=== PATIENT | female | born 1940 | race Caucasian/White ===

== ENCOUNTER → 2018-07-30 09:40 | Outpatient (CLI) | payer MEDICARE, OTHER, SELFPAY ==
--- NOTE | 2018-07-30 09:55 | RAD_ITS ---
PROCEDURE: Fluoroscopic guided Hip Injection DATE: July 30, 2018 INDICATION: Female, 77 years old. Right hip pain. PHYSICIAN: Kingsley Landrum M.D. MEDICATIONS: 6 mg of betamethasone and 3 cc 1% lidocaine. 2% Lidocaine administered subcutaneously for local anesthesia. ACCESS SITE: Right hip. NEEDLE: 22-gauge spinal needle. FLUOROSCOPY TIME (if supplied): (0:48) minutes/seconds FINDINGS: The risks, benefits, and alternatives to the procedure were explained to the patient. The specific risks of bleeding, infection, and neurovascular injury were detailed and accepted. Witnessed informed consent was obtained. A 22-gauge spinal needle was positioned under mammographic fluoroscopic localization. Approximately 2 cc of Isovue-300 instilled for localization purposes. Medication was then injected. The patient tolerated the procedure well without any immediate complications. The patient was placed supine with head elevated and returned to the floor in stable condition. RAD/Inj/Asp Kelvin Jt Should/Hip/Knee IMPRESSION: 1. Successful fluoroscopic guided hip injection. Electronically Signed: Kingsley Landrum MD at 15:26 EST , Service support ,
== END ==
PROVIDERS: Family Provider Family Medicine; PCP Family Medicine; Referring Provider Specialist; Visit Provider Specialist
DX: M16.11 Unilateral primary osteoarthritis, right hip (principal)
CPT/HCPCS: 20610; 77002; Q9965; J0702

== ENCOUNTER 2018-09-05 11:30 | Outpatient (RCR) | payer MEDICARE, OTHER, SELFPAY | END 2018-09-15 23:59 | LOC: NS 11:30 | PROVIDERS: Family Provider Family Medicine; PCP Family Medicine; Visit Provider Specialist | DX: E66.01 Morbid (severe) obesity due to excess calories (principal); Z68.42 Body mass index [BMI] 45.0-49.9, adult; Z71.3 Dietary counseling and surveillance | CPT/HCPCS: 97802; 97803 ==

== ENCOUNTER 2018-10-08 11:30 | Outpatient (RCR) | payer SELFPAY | END 2018-10-15 23:59 | LOC: NS 11:30 | PROVIDERS: Family Provider Family Medicine; PCP Family Medicine; Visit Provider Specialist | DX: E66.01 Morbid (severe) obesity due to excess calories (principal); Z68.42 Body mass index [BMI] 45.0-49.9, adult; Z71.3 Dietary counseling and surveillance | CPT/HCPCS: 97803 ==

== ENCOUNTER 2018-10-30 11:08 | Outpatient (RCR) | payer SELFPAY | END 2018-11-15 23:59 | LOC: NS 11:08 | PROVIDERS: Family Provider Family Medicine; PCP Family Medicine; Visit Provider Specialist | DX: E66.01 Morbid (severe) obesity due to excess calories (principal); Z68.42 Body mass index [BMI] 45.0-49.9, adult; Z71.3 Dietary counseling and surveillance | CPT/HCPCS: 97803 ==

== ENCOUNTER 2018-12-03 12:00 | Outpatient (RCR) | payer SELFPAY | END 2018-12-03 23:59 | disposition home or self-care (01) | LOC: NS 12:00 | PROVIDERS: Visit Provider Specialist | DX: E66.01 Morbid (severe) obesity due to excess calories (principal); Z68.42 Body mass index [BMI] 45.0-49.9, adult; Z71.3 Dietary counseling and surveillance | CPT/HCPCS: 97803 ==

== ENCOUNTER 2019-03-12 10:01 | Inpatient (IN) | payer MEDICARE, OTHER, SELFPAY ==
[2019-02-27 15:27] VITALS: BP 141/62; PULSE 69; RESP 17; TEMP 36.6; O2SAT 96; BMI 45.8
[2019-02-27 18:03] LABS: Anion Gap 8 (5-15); BUN 16 mg/dL (7-18); BUN/Creat Ratio 26.6 RATIO (10-20); Calcium,Total 9.7 mg/dL (8.5-10.1); Chloride 106 mmol/L (98-107); EST Glomerular Filtration Rate 103 mL/min (>60); Est Glom Filt Rate - Afr Amer 124 mL/min (>60); Estimated Creatinine Clearance 35.55 ml/min; Glucose 94 mg/dL (74-106); Potassium 3.8 mmol/L (3.5-5.1); Sodium Level 144 mmol/L (136-145)
--- NOTE | 2019-02-28 07:50 | HP.PCM_ITS ---
History and Physical Patient Name: Alona Woodson : 1940 From: GABI WILCOX PA-C DATE OF SURGERY: 03/12/2019 SCHEDULED PROCEDURE: right total hip arthroplasty HISTORY OF PRESENT ILLNESS: Preoperative history and physical exam was performed on February 27, 2019. This is a 78 -year-old female who is been having ongoing pain in her right hip for the past 8 months. Patient's states the pain can reach a size and 8/10 with activity. Patient's pain is been intermittent, aching, and sore. Pain is increased with walking and going up and down stairs. Patient complains of pain located in the right groin. She also has right buttock pain that radiates into the back of the knee. She denies any numbness or tingling. Patient has tried conservative measures consisting of rest and elevation. Patient has tried physical therapy with minimal relief. Patient has been working on weight loss and has done well. patient has also tried oral medications including Aleve with minimal relief. Patient has lost approximately 18 pounds. She denies previous surgery on the right hip. After failing conservative measures and discussing treatment options with Dr. Uriel Sanches, the patient would like to proceed with a right total hip arthroplasty. Patient currently denies any chest pain, shortness of breath, fevers chills, or recent infections. She has obtain surgical clearance from her primary care physician Dr. Donny Sanches. REVIEW OF SYSTEMS: ROS: Const: Reports weight change, but denies change in appetite and fever. CV: Reports heart murmur, but denies chest pain and irregular heartbeat. Resp: Denies cough, pneumonia, shortness of breath, tuberculosis and wheezing. GI: Denies constipation, diarrhea, heartburn, nausea, rectal itching, bloody stools and vomiting. : Denies incontinence. Musculo: Reports trouble walking, but denies leg swelling, pain and weakness. Skin: Denies Raynaud's, history of shingles and tattoo. Neuro: Denies ambulatory dysfunction, dizziness, numbness/tingling and tremor. Psych: Denies anxiety, insomnia and stress. Geronimo/Lymph: Denies anemia, bleeding/bruising tendency and past transfusion. Reviewed, no changes. PAST MEDICAL HISTORY: Advance Care Plan: Other Directive, POA Effective Date: 07/22/2018 Other Directive, LIVING WILL Effective Date: 07/22/2018 PMH: Medical Problems: Gout, Hard of Hearing, High Blood Pressure, Hypercholesterolemia, Psoriasis, Sleep Apnea Accidents: None Surgical Hx: Appendectomy, Gallbladder, Hysterectomy, Tonsillectomy, Knee Replacement Lt, Knee Replacement Rt, Homero Cataracts Anesthesia Complications: None Assistive Devices: Hearing Aid - AMPLIFIER Reviewed and updated. SOCIAL HISTORY: SH: Marital: .Occupation: Retired.Work Status: Retired.Hand Dominance: Right- handed. Personal Habits: Cigarette Use: Never Smoked Cigarettes.Smokeless Tobacco: Never Used Smokeless Tobacco.E-Cigarette Use: Never used.Alcohol: Denies use.Drug Use: Denies Use.Enjoy Exercising: Exercises 1-3 x/month. Reviewed, no changes. VITALS: Ht: 59.5 Wt: 246lb Wt k.586 BMI: 48.8 BP: 126/84 Pulse: 63 Resp: 16 T: 97.1 T: 36.2C ALLERGIES: Cipro Flagyl MEDICATIONS: Myrbetriq 25 mg 1 tab PO daily, Atorvastatin Calcium 20 mg 1 tab PO daily, Lisinopril 20 mg 1 tab PO daily, Allopurinol 100 mg 1 tab PO daily, Verapamil 180mg 1 tab PO bid, Cholestyramine Light 4 GM/Dose tad, Vitamin D3 12290 Unit 1 tab PO once weekly, [place] 3 1000 mg 1 cap PO qid, Aleve 220 mg prn, Aspir-Low 81 mg 1 by mouth once daily PRE-OP EXAM: General appearance:NORMAL Other: Eyes: Conjunctivae and lids: NORMAL Pupils: ERR Ears, Nose, Mouth, and Throat: NORMAL Other: Inspection of lips, teeth and gums: NORMAL Other: Neck: Examination of neck: no masses noted. Respiratory: Assessment of respiratory effort: NORMAL Other: Auscultation of lungs: clear to auscultation no wheezes, rhonchi or rales. Cardiovascular: Auscultation of heart: regular rate and rhythm, positive systolic murmur Gastrointestinal: Exam of abdomen: soft, nontender, nondistended bowel sounds present. PHYSICAL EXAMINATION: Patient does walk with an antalgic gait. Patient's hip is cool to touch without erythema. Right hip range of motion: Flexion 80, internal rotation neutral, external rotation 25. Pain with range of motion. Sensation intact to light touch. Neurovascularly intact. IMAGING STUDIES: X-rays of the right hip reveal joint space narrowing with subchondral sclerosis, osteophyte formation consistent with severe osteoarthritis. Patient also has moderate severe arthrosis of the left hip with joint space narrowing, subchondral sclerosis, and osteophyte formation. IMPRESSION: 1. Severe right hip osteoarthritis 2. Left hip osteoarthritis 3. Hypertension 4. Sleep apnea: Currently uses CPAP 5. Psoriasis 6. Hypercholesterolemia 7. History of gout PLAN: Dr. Uriel Sanches did discuss and review with the patient all treatment options including surgical versus nonsurgical options. Patient does wish to proceed with the above-stated procedure. Potential risks, benefits, and complications of the procedure were discussed in detail including but not limited to , infection, nerve and blood vessel damage, persistent pain, numbness, tingling, paresthesias, blood clot, pulmonary embolism, and requirement for possible further surgery. The patient expressed full understanding and has no further questions for the doctor. Patient does agree to proceed with the above-stated procedure and has signed the surgery consent form. This dictation was created using voice recognition software. Phonetic and/or grammatical errors may exist.. ___ I have re-examined the patient. There are no clinical changes since date of exam. ___ See progress notes for changes. ___ Dictated on admission Date: Time: Signature:
[2019-03-12] VITALS (9 sets, daily range): BP systolic 130–154; BP diastolic 44–94; PULSE 52–65; RESP 14–16; TEMP 35.9–36.7; O2SAT 87–100; BMI 46.5; BMI 43.4
[2019-03-12 10:26] LABS: Bedside Glucose 63 mg/dL (70-110)
[2019-03-12] MEDS: Lactated Ringers 1,000 ML 125 ML IV ×2 (10:36→15:18)
[2019-03-12] MEDS: Gabapentin 600 MG Tablet PO (10:37)
[2019-03-12] MEDS: Celecoxib 200 MG Capsule 400 MG PO (10:37)
[2019-03-12] MEDS: Acetaminophen 500 MG Tablet 1000 MG PO ×2 (10:38→22:16)
[2019-03-12] MEDS: Cefazolin 2 GM in 0.9% Normal Saline 100 ML IV (12:00)
--- NOTE | 2019-03-12 12:00 | RAD_ITS ---
STUDY: X-RAY - RIGHT HIP REASON FOR EXAM: Female, 78 years old. Total hip replacement TECHNIQUE: 2 intraoperative views of the hip. COMPARISON: None. FINDINGS: Status post right total hip replacement. Hardware components are well aligned on these limited views. Bony details are limited. RAD/Hip 1 view with Pelvis IMPRESSION: Status post total replacement of the right hip. Electronically Signed: Gage Acevedo DO at 19:50 EDT Tel [phone], Service support ,
[2019-03-12] MEDS: dexAMETHasone 10 MG/ML Vial IV (12:33)
--- NOTE | 2019-03-12 14:18 | OP.PCM_ITS ---
Report of Operation Date of Procedure: 03/12/19 Pre-Operative Diagnosis: Right hip primary Osteoarthritis Post-Operative Diagnosis: Right hip primary Osteoarthritis Surgery/Procedure Performed:: Right minimally invasive direct anterior total hip replacement Description of Surgical Findings:: Stable hip. Due to patient's extreme varus anatomy we did make her slightly longer on the right in order to obtain appropriate stability. joint special operations: Aly Hdz Type of Anesthesia:: Spinal Anesthesiologist: Catalino Lange Special Medications: 2 g Ancef, 1 g TXA at incision, 1 g TXA closure, 10 mg Decadron, joint cocktail (5 mg Duramorph, 30 mL of 0.5% Ropivicaine, 1000 units of epinephrine, 30 mg of Toradol) Specimen's removed: Bony cuts Estimated Blood Loss (mL): 300 Fluids Replaced: 1300 ml crystalloid Description of Procedure: Components used: 1. Accolade 2 Arvind femoral stem size 1 127? 2. Riegelwood trident 2 acetabular shell size 48 mm 3. Riegelwood X3 polyethylene D 4. Riegelwood Biolox delta 36mm, +2.5mm femoral head Brief history operative indications: 78 yo f who failed conservative measures for their hip osteoarthritis. X-rays were consistent with osteoarthritis including joint space narrowing, osteophyte formation and subchondral cysts. Total hip replacement was discussed with the patient with risks and benefits including but not limited to blood loss, DVTs, PEs, neurovascular damage, dislocation, general risks of anesthesia including loss of life. Patient demonstrated an understanding medical clearance is obtained the patient was consented for surgery. Procedure: On the date of procedure the patient's r hip was marked in the preoperative area. Patient was then taken back to the operating room where anesthesia assumed control of the C-spine and airway and administered anesthetic. Patient was transferred to the operating table and placed in the supine position. The hips were placed at the break of the bed and a sacral bump was placed. The r lower extremity was then prepped out in a sterile fashion using chlorhexidine while the surgeon scrubbed. The PA was vital in the positioning of the patient. Upon reentering the room the r lower extremity was draped in the standard orthopedic fashion and the incision was marked. A timeout was called and everyone agreed upon the side, the site, the procedure be performed, antibody given, and patient's identity. At this time incision was made through skin, subcutaneous tissue, and fat down to fascia. The fascia was then incised and the TFL was retracted laterally. A retractor was placed on the lateral border of the femoral neck. Attention was directed to the inferior portion of the approach and all crossing vessels were identified and appropriately coagulated. A retractor was then placed on the medial portion of the femoral neck. The anterior capsule was then cleared of all soft tissue and then H shaped capsulotomy was made. The retractors were then placed inside the capsule. The femoral neck was identified and a cleanup cut was made. At this time a power corkscrew was used to remove the femoral head. Attention was then turned toward the acetabulum where the soft tissues were appropriately retracted and the acetabulum was sequentially reamed to 48 mm. A 48 mm cup was then selected and impacted into place. Acetabular liner was impacted into place and locking mechanism was verified. The position of the acetabular cup was then verified under live fluoroscopy. Attention was then turned to the femur. Soft tissue releases on the medial and lateral femoral neck were appropriately done, the leg was externally rotated and lateralized. A Lake retractor was placed medially and proximally to the greater trochanter this allowed appropriate visualization and exposure of the femoral canal. Rongeour was then used to remove excess lateral bone. A canal finder and entry broach were used to open the proximal canal. Once we verified we were down the femoral canal we subsequently broached up to a size 2 femur. The appropriate neck was placed in the previously selected head was trialed with a -5 mm neck. Traction was pulled and the hip was reduced with internal rotation. Once it was appropriately reduced and stability was checked. There was minimal shuck, appropriate stability with hyperextension and external rotation as well as with 90? flexion and internal rotation. However at this point patient's hip was excessively long. Fluoroscopy was then also used to verify the position of the components and leg lengths using the contralateral side for comparison. At this time there appeared to be significant leg length discrepancy based on the implants. Patient's anatomic anatomy was again reexamined showing significant varus. Live x-rays used to verify the size of the femoral implant. Based on radiographic findings we felt we would need to significantly seat the implant requiring a downsize. Hip was dislocated proximal femur was again exposed. We further broached with a 1 broach using the calcar reamer to clean up the neck. Once this was completed we again trialed. We trialed with a -2.5 which gave us a reasonable leg length however did not give us adequate stability of the hip. Using live x-ray as well as anatomic markers it was felt that the acetabular anteversion was appropriate. Femoral anteversion was reviewed and felt to be appropriate as well. Based on this and the fact the patient had contralateral severe osteoarthritis on her preoperative pelvic film we elected to slightly lengthen the extremity in order to obtain stability. We trialed up to a +2.5, 36 mm femoral head which did give us adequate stability with a slight leg length discrepancy on the operative side. The trial components were then dislocated the proximal femur was again exposed and the components were removed from the wound. The final components were verified and opened. The wound was copiously irrigated out with normal saline. The acetabulum was checked for any residual debris. The final components were placed and impacted. Traction and internal rotation were again used to reduce the hip. After adequate reduction the hip remained stable with appropriate leg lengths. The final components were once again checked with live fluoroscopy and were found to be satisfactory. The wound was then copiously irrigated with normal saline once more, and hemostasis was obtained. Closure was then done using #1 Vicryl runner to close the fascia. A 2-0 vicryl interuppted sutures were used to close the subcutaneous skin. A 3-0 Monocryl and Steri-Strips were used for final skin closure. A Silverlon dressing was placed. Patient was awakened by anesthesia and transferred to the [facility]. Patient was then transferred to the PACU for recovery. Postoperative plan: Patient will get 24 hours postop antibiotics. Patient will get in-house physical therapy and will be weight-bear as tolerated. Patient will follow up in office in 2 weeks for a wound check and x-rays. During the course of the procedure the physician assistant casino shift manager played a vital role. His intimate knowledge of my steps in the procedure aided in safe and expedient completion of the procedure. The PA played a vital rolls in positioning particularly in obtaining the appropriate positioning of the sacral bump. The PA was also vital in the retraction of soft tissues during the exposure and especially the femoral work as this is a vital part of the procedure to prevent complications and fractures. The PA was also vital and protecting soft tissues during times of bony cuts and reaming. He also played a vital role in closure with my direct supervision. The PA was also important during reduction and dislocation of the joint and trials intraoperatively. Grafts/Implants Used: Riegelwood - Complications No intraoperative complications - Admit VTE Documentation VTE Present on Admission: No VTE Mechan Device Prophylaxis: SCD's, Thigh High AYDEN Hunt VTE Pharm Prophylaxis ordered?: Yes
--- NOTE | 2019-03-12 15:34 | RAD_ITS ---
STUDY: X-RAY - PELVIS AND RIGHT HIP REASON FOR EXAM: Female, 78 years old. Post op TECHNIQUE: 2 views of the pelvis and hip. COMPARISON: None. FINDINGS: The patient is status post right hip arthroplasty. The hardware is intact and alignment is satisfactory. There is no acute fracture or dislocation. RAD/Hip Min 2 Views (Portable) IMPRESSION: Status post right hip arthroplasty with intact hardware in satisfactory alignment. Electronically Signed: Uriel Najera, at 16:14 EDT Tel , Service support ,
[2019-03-12] MEDS: Aspirin 81 MG TAB.CHEW PO (18:11)
[2019-03-12] MEDS: Famotidine 20 MG Tablet PO (18:11)
[2019-03-12] MEDS: Cefazolin 1 GM/50 ML BAG IV (20:24)
[2019-03-12] MEDS: Atorvastatin Calcium 20 MG Tablet PO (22:16)
[2019-03-12] MEDS: Senna/Docusate Sodium 1 Tablet 2 TABLET PO (22:16)
[2019-03-12] MEDS: Verapamil SR 180 MG CAPSULE PO (22:17)
[2019-03-13 02:28] VITALS: BP 134/52; PULSE 61; RESP 18; TEMP 36.4; O2SAT 97
[2019-03-13] MEDS: Cefazolin 1 GM/50 ML BAG IV (03:52)
[2019-03-13] MEDS: Acetaminophen 500 MG Tablet 1000 MG PO ×2 (05:21→13:54)
[2019-03-13 06:00] LABS: Mean Corp Hgb Conc 31.4 g/dL (32-36); Mean Corpuscular Hgb 29.1 pg (27.0-32.0); Mean Corpuscular Volume 92.6 fL (81-99); Mean Platelet Vol. 9.8 fl (6.2-12.0); Platelet Count 242 K/mm3 (150-450); RBC Distribution Width CV 13.8 % (11.6-14.6); RBC Distribution Width SD 47.1 fl (35.1-43.9); Red Blood Count 3.78 M/mm3 (4.2-5.4); White Blood Count 21.5 K/mm3 (4.4-11.0)
[2019-03-13 06:23] LABS: Anion Gap 9 (5-15); BUN 24 mg/dL (7-18); BUN/Creat Ratio 33.5 RATIO (10-20); Calcium,Total 8.5 mg/dL (8.5-10.1); Chloride 105 mmol/L (98-107); Creatinine, Serum 0.72 mg/dL (0.55-1.02); EST Glomerular Filtration Rate 84 mL/min (>60); Est Glom Filt Rate - Afr Amer 101 mL/min (>60); Estimated Creatinine Clearance 35.55 ml/min; Glucose 125 mg/dL (74-106); Potassium 4.8 mmol/L (3.5-5.1); Sodium Level 139 mmol/L (136-145)
[2019-03-13 08:28] VITALS: BP 133/94; PULSE 69; RESP 18; TEMP 36.4; O2SAT 95
[2019-03-13] MEDS: Ensure Surgery 237 ML LIQUID PO (08:31)
[2019-03-13] MEDS: Mirabegron 25 MG TAB.ER.24H PO (08:31)
[2019-03-13] MEDS: Aspirin 81 MG TAB.CHEW PO (08:32)
[2019-03-13] MEDS: Allopurinol 100 MG Tablet PO (08:32)
[2019-03-13] MEDS: Meloxicam 7.5 MG Tablet PO (08:32)
[2019-03-13] MEDS: Famotidine 20 MG Tablet PO (08:32)
[2019-03-13] MEDS: Verapamil SR 180 MG CAPSULE PO (08:33)
--- NOTE | 2019-03-13 08:55 | PCM.PN.ORT ---
Subjective: The patient was sitting in bed side chair upon examination. Patient denies any chest pain, shortness of breath, dizziness, lightheadedness, nausea or vomiting, or calf pain. Pain is controlled on medications. No adverse overnight events. Overall patient is doing well. She has tightness in her right thigh but the pain is well controlled. She has tolerated physical therapy. Patient does wish to go home today. Objective: Vital signs stable and afebrile. Patient is able to plantarflex and dorsiflex actively. Sensation is intact to light touch to saphenous, sural, superficial and deep peroneal, and tibial distribution. Dressing is minimal drainage over the middle one third and remaining dressing clean dry and intact. Negative Homans bilaterally, negative signs and symptoms of DVT. - Physical Exam General: Alert, Oriented x3, Cooperative, No apparent distress Vital Signs Temp Pulse Resp BP Pulse Ox 97.6 F L 69 18 133/94 H 95 03/13/19 08:28 03/13/19 08:28 03/13/19 08:28 03/13/19 08:28 03/13/19 08:28 Oxygen Flow Rate (L/min) 2 Oxygen Delivery Method Room Air Weight: 104.326 kg Body Mass Index (BMI) 43.4 Intake and Output for Last 24 Hours 03/11/19 03/12/19 03/13/19 23:59 23:59 23:59 Intake Total 2880.0 / 2880.0 650 / 650 Output Total 300 / 300 250 / 250 Balance 2580.0 / 2580.0 400 / 400 Laboratory Tests Past 24 Hrs 03/13/19 03/13/19 05:34 05:34 WBC 21.5 H RBC 3.78 L Hgb 11.0 L Hct 35.0 L MCV 92.6 MCH 29.1 MCHC 31.4 L RDW Std Deviation 47.1 H RDW Coeff of Kirsty 13.8 Plt Count 242 MPV 9.8 Sodium 139 Potassium 4.8 Chloride 105 Carbon Dioxide 25.0 Anion Gap 9 BUN 24 H Creatinine 0.72 Estim Creat Clear Calc 35.55 Est GFR (MDRD) Af Amer 101 Est GFR (MDRD) Non-Af 84 BUN/Creatinine Ratio 33.5 H Glucose 125 H Calcium 8.5 POC Glucose 03/12/19 10:23 POC Glucose 63 L Medical Necessity - Tobacco Use Smoking Status: Never smoker Assessment/Plan 1. S/P right direct anterior total hip arthroplasty POD #1 2. Continue Pain Medications: Tylenol and OxyIR 3. DVT Prophylaxis: Aspirin 81 mg twice daily for 4 weeks postoperatively 4. PT/OT: Weightbearing as tolerated 5. H & H: 11.0/35.0, asymptomatic 6. Reactive leukocytosis: Currently 21.5, afebrile. Patient did receive Decadron intraoperatively. 7. Encouraged Incentive Spirometry 8. Disposition: Orthopedically stable, plan will be for discharge home today. Prescriptions were discussed with the patient. Patient will follow-up per postop instructions. She does have outpatient physical therapy established.
--- NOTE | 2019-03-13 09:01 | DCINST_ITS ---
Discharge Diet: No Restrictions Discharge Activity: May Not Drive - while taking narcotic pain medications. May shower in (days): 1 - Dressing must be intact to skin, turn dressing away from water Ice area for (Minutes): 20 - Every 1-2 hours while awake Weight Bearing Status: Weight bearing as tolerated Elevate: Operative Extremity Additional Activity Instructions:: Wear elastic stockings for 2 weeks. DO NOT use alcohol with narcotic pain medication. DO NOT make important decisions while taking narcotic medication. If you have problems with taking your medication (rash, itching, nausea, etc.) call the office at once. Call your doctor if your incision/area has: Increased Pain/ Swelling, Increased Redness, Foul Smelling Discharge Call your doctor if you observe: Fever of 101 or Higher Remove Dressing in (days):: 4 - Okay to remove on March 17, 2019 Additional Instructions: Dressing: Okay to remove dressing on March 17, 2019. After dressing has been removed you must use washcloth to place between the skin fold and incision for 4 weeks postoperatively until incision is well-healed Follow postop orthopedic instructions Allergies/Adverse Reactions: Allergies ciprofloxacin [From Cipro] Allergy (Verified 02/27/19 15:14) Unknown metronidazole Allergy (Verified 02/27/19 15:14) Unknown Medications to take at Discharge Allopurinol 100 mg PO DAILY 02/27/19 Atorvastatin Calcium [Lipitor] 20 mg PO QHS 02/27/19 Cholestyramine/Aspartame [Cholestyramine Light Packet] 4 gm PO DAILY 02/27/19 Ergocalciferol [Vitamin D] 50,000 unit PO Q7D 02/27/19 Mirabegron [Myrbetriq] 25 mg PO DAILY 02/27/19 Verapamil [Calan Sr] 180 mg PO BID 02/27/19 Acetaminophen [Tylenol] 1,000 mg PO Q8 14 Days #100 tab 03/13/19 Aspirin [Aspirin, Baby] 81 mg PO BIDCM #60 tab.chew 03/13/19 Famotidine [Pepcid] 20 mg PO DAILY #30 tab 03/13/19 Meloxicam [Mobic] 7.5 mg PO BID #60 tab 03/13/19 Oxycodone [Oxyir] 5 mg PO Q4H PRN PRN 5 Days #30 tab 03/13/19 The following prescriptions were given: Aspirin [Aspirin, Baby] 81 mg PO BIDCM #60 tab.chew Prescription Printed Meloxicam [Mobic] 7.5 mg PO BID #60 tab Prescription Printed Oxycodone [Oxyir] 5 mg PO Q4H PRN PRN 5 Days #30 tab PRN Reason: Pain Score 4-10/10 Prescription Printed Famotidine [Pepcid] 20 mg PO DAILY #30 tab Prescription Printed Acetaminophen [Tylenol] 1,000 mg PO Q8 14 Days #100 tab Prescription Printed Primary Care Physician: Donny Sanches MD [Primary Care Provider] - Test Results: Test results from this visit will be discussed in further detail at your follow- up appointment, if applicable. Please Follow Up With: Physical Therapy [facility] When: 03/17/19 Please Follow Up With: Aly Hdz PA-C When: 03/26/19 @ 11:00 am
--- NOTE | 2019-03-13 10:25 | CASEMGMT ---
RN DALE Face to Face with patient for initial transition planning/care coordination assessment. RN CM introduced self and role at [facility]. Patient sitting in chair, alert and oriented. Patient willing to participate in assessment and is able to answer all questions appropriately. Care providers, pharmacy, and demographics verified. Patient wishes to discharge home, and is with [facility] for outpatient therapy. Patient states she has no further needs or concerns at this time. CM to follow for discharge planning needs that may arise. PCP: Donny Sanches Specialists: damaris Sanches Preferred Pharmacy: [facility]: [facility] [place]: yes Living Will/HPOA: yes Hudson Woodson LNOK: Living Arrangements: Patient lives with in 1 story home with 3 steps and railing to enter the home. Transportation: DME/HHC: Patient states she has raised toilet, cane, and walker at home. Patient has outpatient therapy setup for Saturday 03/17 at [facility]. Disposition Plan: Patient to discharge home with outpatient therapy, family support, and follow-up plans in place. Tiff CONNOR, RN, CM
[2019-03-13] MEDS: Cholestyramine/Sucrose 4 GM/PACKET PO (11:34)
[2019-03-13 13:56] VITALS: BP 136/54; PULSE 75; RESP 18; TEMP 36.4; O2SAT 95
== END 2019-03-13 14:11 | disposition home or self-care (01) | DRG 470 ==
LOC: ACINP 10:02 → MS3 15:15
PROVIDERS: Admitting Provider Specialist; Family Provider Family Medicine; PCP Family Medicine; Referring Provider Specialist; Visit Provider Specialist
PROC: 0SR90JZ Replacement of Right Hip Joint with Synthetic Substitute, Open Approach (ICD-10-PCS; CPT 27284; principal; 2019-03-12 11:35)
DX: M16.0 Bilateral primary osteoarthritis of hip (principal); I10 Essential (primary) hypertension; E78.00 Pure hypercholesterolemia, unspecified; K58.9 Irritable bowel syndrome, unspecified; M10.9 Gout, unspecified; L40.9 Psoriasis, unspecified; K21.9 Gastro-esophageal reflux disease without esophagitis; H91.90 Unspecified hearing loss, unspecified ear; G47.30 Sleep apnea, unspecified; Z96.653 Presence of artificial knee joint, bilateral; Z78.0 Asymptomatic menopausal state; Z79.82 Long term (current) use of aspirin; Z79.899 Other long term (current) drug therapy
CPT/HCPCS: 36415; 73501; 73502; 76000; 80048; 82962; 85027; 87081; 97161; 97166; 97530; 97535; 99251; C1776; J7120; G0463

== ENCOUNTER 2020-04-13 09:03 | Day surgery (SDC) | payer MEDICARE, OTHER, SELFPAY ==
[2019-03-12 16:15] VITALS: BMI 43.4
--- NOTE | 2020-04-08 11:56 | EKG12_ITS ---
Test Reason : PRE OP Blood Pressure : / mmHG Vent. Rate : 065 BPM Atrial Rate : 065 BPM P-R Int : 184 ms QRS Dur : 102 ms QT Int : 438 ms P-R-T Axes : 040 -08 050 degrees QTc Int : 455 ms Sinus rhythm with occasional Premature ventricular complexes Otherwise normal ECG Confirmed by JONH MELVIN, MINA ([id number]), mapping editor SHERRI JUNG ([id number]) on 04/12/2020 1:00:56 PM Referred By: Javy Larry Confirmed By:MINA BORJA MD
[2020-04-08 13:16] LABS: Anion Gap 6 (5-15); BUN 14 mg/dL (7-18); BUN/Creat Ratio 24.1 RATIO (10-20); Calcium,Total 9.1 mg/dL (8.5-10.1); Chloride 103 mmol/L (98-107); Creatinine, Serum 0.58 mg/dL (0.55-1.02); EST Glomerular Filtration Rate 106 mL/min (>60); Est Glom Filt Rate - Afr Amer 129 mL/min (>60); Glucose 88 mg/dL (74-106); Potassium 4.3 mmol/L (3.5-5.1); Sodium Level 139 mmol/L (136-145)
[2020-04-13] VITALS (24 sets, daily range): BP systolic 95–160; BP diastolic 50–85; PULSE 57–78; RESP 16–20; TEMP 36.3–36.6; O2SAT 84–99; BMI 46.0
[2020-04-13] MEDS: Lactated Ringers 1,000 ML 100 ML IV (09:55)
--- NOTE | 2020-04-13 11:07 | DCINST_ITS ---
You will use the following diet at home:: No restrictions Your food should be the consistency of: Regular Discharge Activity: Return to Normal Activity Call your doctor if your incision/area has: Increased Pain/ Swelling Allergies/Adverse Reactions: Allergies ciprofloxacin [From Cipro] Allergy (Verified 04/02/20 11:23) Unknown lisinopril Allergy (Verified 04/13/20 09:31) Swelling metronidazole Allergy (Verified 04/02/20 11:23) Unknown Medications to take at Discharge RX: Allopurinol 100 mg PO DAILY 02/27/19 RX: Atorvastatin Calcium [Lipitor] 20 mg PO QHS 02/27/19 RX: Cholestyramine/Aspartame [Cholestyramine Light Packet] 4 gm PO DAILY 02/27/19 RX: Ergocalciferol [Vitamin D] 50,000 unit PO Q7D 02/27/19 RX: Mirabegron [Myrbetriq] 25 mg PO DAILY 02/27/19 RX: Verapamil [Calan Sr] 180 mg PO BID 02/27/19 RX: Aspirin [Aspirin, Baby] 81 mg PO BIDCM #60 tab.chew 03/13/19 RX: Famotidine [Pepcid] 20 mg PO DAILY #30 tab 03/13/19 Tribune-3 Fatty Acids/Fish Oil [Tribune 3 1,000 mg Softgel] 1 ea PO DAILY 04/02/20 RX: Multivitamin 1 ea PO DAILY 04/02/20 Primary Care Physician: Donny Sanches MD [Primary Care Provider] - Test Results: Test results from this visit will be discussed in further detail at your follow- up appointment, if applicable. Please Follow Up With: Javy Larry MD When: 1 week
--- NOTE | 2020-04-13 11:08 | PCM.OPRPT ---
Problem List (1) Mass of hypopharynx Status: Chronic (2) Vocal cord paralysis, unilateral complete Status: Chronic Report of Operation Date of Procedure: 04/13/20 Pre-Operative Diagnosis: 1. hypopharyngeal mass. 2. vocal cord immobility, left Post-Operative Diagnosis: 1. hypopharyngeal mass. 2. vocal cord immobility, left Surgery/Procedure Performed:: 1. diagnostic laryngoscopy with biopsy and use of operative telescope. 2. failed vocal cord injection, left Type of Anesthesia:: General Description of Procedure: on the day of the procedure, after appropriate informed consent was obtained, the patient was brought to the operating room and placed in supine position on the operating table. she was placed under general endotracheal anesthesia by the anesthesiologist. the endotracheal tube was secured, the eyes were taped. the table was rotated 90 degrees toward the surgeon. a tooth guard was placed. a blaise laryngoscope was inserted into the oral cavity with care not to damage the lips, teeth or gums. it was suspended from the reese stand. a zero degree endoscope was used to evaluate the larynx. given the patient's habitus and anatomy, her larynx was very difficult to visualize. her posterior larynx was readily seen, and no overt laryngeal or pharyngeal masses were seen. the dedo laryngoscope was used to reexamine her hypopharynx and posterior larynx. aside from interarytenoid edema, no masses were seen thus no biopsies were taken. 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 there was no safe way to view her vocal cords directly. the glide scope was used and her left cord was visualized. even though the injector needle could be bent and manipulated into place, i didnt feel confident that, under these conditions, she could be injected safely into the correct area for optimal medialization. the patient was awoken from anesthesia and transferred to the PACU in stable condition.
[2020-04-13] MEDS: Oxymetazoline 0.05% 1 SPRAY SPRAY.BTL 15 SPRAY (11:39)
[2020-04-13] MEDS: Ipratropium/Albuterol Sulfate 3 ML AMPUL.NEB INHALATION (14:12)
--- NOTE | 2020-04-13 16:00 | RAD_ITS ---
STUDY: X-RAY CHEST REASON FOR EXAM: Female, 79 years old. Pre-op for pelvic surgery TECHNIQUE: PA and lateral views of the chest. COMPARISON: None. FINDINGS: There are interstitial fibrotic changes of the lungs. There is no demonstrated pleural abnormality. Normal size heart. Normal mediastinum and aramis. Normal visualized pulmonary arteries. Normal visualized aortic arch and descending thoracic aorta. There are diffuse degenerative changes of the visualized thoracic spine. There is degenerative osteoarthritis of the bilateral shoulders. There is no demonstrated abnormality of the visualized soft tissue structures of the upper abdomen. RAD/Chest PA and Lateral IMPRESSION: No acute pulmonary process Electronically Signed: Mark Serrano MD at 16:14 EDT , Service support ,
== END 2020-04-13 17:00 | disposition home or self-care (01) ==
LOC: SDC 09:04 → AC 09:04
PROVIDERS: Anesthesiology; PCP Family Medicine; Referring Provider Otolaryngology; Visit Provider Otolaryngology
PROC: 0CJS8ZZ Inspection of Larynx, Via Natural or Artificial Opening Endoscopic (ICD-10-PCS; CPT 31575; principal; 2020-04-13 10:35)
PROC: (CPT 31571; 2020-04-13 10:35)
DX: J38.01 Paralysis of vocal cords and larynx, unilateral (principal); J38.7 Other diseases of larynx; Z53.8 Procedure and treatment not carried out for other reasons; G25.81 Restless legs syndrome; K21.9 Gastro-esophageal reflux disease without esophagitis; K58.9 Irritable bowel syndrome, unspecified; E78.00 Pure hypercholesterolemia, unspecified; I10 Essential (primary) hypertension; G47.30 Sleep apnea, unspecified; Z79.82 Long term (current) use of aspirin; Z79.899 Other long term (current) drug therapy; Z87.891 Personal history of nicotine dependence; Z20.828 Contact with and (suspected) exposure to other viral communicable diseases
CPT/HCPCS: 00320; 31571; 36415; 71046; 80048; 87635; 93005; 94640; C9803; J7120; J2405; U0003